=== PATIENT | female | born 2000 | race Caucasian/White ===

== ENCOUNTER 2018-08-21 20:44 | Emergency (ER) | payer OTHER ==
[~2018-08-21] VITALS: Ht 165.1 cm; Wt 78.0 kg
[2018-08-21 21:12] VITALS: Ht 165.1 cm; Wt 78.0 kg
[2018-08-21 23:14] VITALS: BP 110/69
== END 2018-08-21 23:14 | disposition home or self-care (01) ==
LOC: ED 20:44
DX: J06.9 Acute upper respiratory infection, unspecified (principal)
CPT/HCPCS: J1885; Q0162

== ENCOUNTER 2019-07-06 01:12 | Emergency (ER) | payer OTHER ==
[~2019-07-06] VITALS: Ht 167.6 cm; Wt 74.8 kg
[2019-07-06 01:17] VITALS: Ht 167.6 cm; Wt 74.8 kg
[2019-07-06 02:11] LABS: BASOPHIL % 0.3 % (0-2); PLATELET COUNT 254 x10^3mcL (130-400); RED CELL DISTRIBUTION WIDTH 13.2 % (11.5-14.5)
[2019-07-06 02:13] LABS: CALCIUM 9.5 mg/dL (8.5-10.1); CARBON DIOXIDE 25.2 mmol/L (21-32); CHLORIDE SERUM 98 mmol/L (98-107); CREATININE SERUM 0.7 mg/dL (0.6-1.0); GFR1 > 60 mL/min; GLUCOSE SERUM 105 mg/dL (74-106); POTASSIUM SERUM 3.2 mmol/L (3.5-5.1); SODIUM SERUM 138 mmol/L (136-145)
[2019-07-06 02:20] LABS: ALBUMIN 4.6 g/dL (3.4-5.0); ALKALINE PHOSPHATASE 75 U/L (46-116); ALT/SGPT 27 U/L (14-59); AST/SGOT 20 U/L (15-37); BILIRUBIN TOTAL 0.5 mg/dL (0.20-1.00)
[2019-07-06 02:25] LABS: TOTAL PROTEIN, SERUM 9.6 g/dL (6.4-8.2)
[2019-07-06 03:25] VITALS: BP 114/70
== END 2019-07-06 03:25 | disposition home or self-care (01) ==
LOC: ED 01:12
PROVIDERS: Emergency Medicine
DX: O21.9 Vomiting of pregnancy, unspecified (principal); O26.891 Other specified pregnancy related conditions, first trimester; R19.7 Diarrhea, unspecified; Z3A.01 Less than 8 weeks gestation of pregnancy
CPT/HCPCS: J2765; J7030